=== PATIENT | male | born 1965 | race Caucasian/White ===

== ENCOUNTER 2016-12-19 17:11 | Emergency (ER) | payer MEDICARE ==
[2016-12-19 17:28] VITALS: RESP 18; TEMP 97.9
--- NOTE | 2016-12-19 18:12 | ED ---
Seizure HPI - General Chief Complaint: Seizure Stated Complaint: Seizure Source: patient, EMS Mode of arrival: EMS Limitations: no limitations - History of Present Illness Initial Comments: Patient is a 51-year-old male who presents for evaluation for seizure. Past medical history as below. Patient has a known history of seizure disorder and takes Lamictal 250 mg twice a day 4. Over the last 2 days, the patient stated that he has not taken any of his medications. States that he has been very busy and has stress forgotten. Today while at the [employer] store, he walked out of the store and went into his vehicle. He stated that he became confused and did not know how to operate his vehicle to reverse it to get out of the parking lot. He then started to have what is described as generalized tonic-clonic seizure. He has no recollection of the seizure itself. This lasted for roughly 3 minutes. He then woke up and saw people lying around him outside of his vehicle. EMS was called. They did not give any medications. He states that he was a little sleepy after but needed to urinate was able to get up and urinate. There is evidence of tongue biting on the left side of his tongue. He feels back to baseline currently. He is followed by neurologist out of the [place] system. He currently denies fever, chills, headache, changes in vision , URI symptoms, sugars breath, cough, chest pain, nausea, vomiting, diarrhea, pain or burning with urination. - Related Data Home Medications Medication Instructions Recorded Confirmed lamoTRIgine [LaMICtal] 250 mg PO BID 12/19/16 12/19/16 Allergies Allergy/AdvReac Type Severity Reaction Status Date / Time codeine Allergy Rash/Hives Verified 12/19/16 18:35 adhesive tape AdvReac Itching Verified 12/19/16 18:35 Review of Systems ROS Statement: Those systems with pertinent positive or pertinent negative responses have been documented in the HPI. ROS Other: All systems not noted in ROS Statement are negative. Past Medical History Past Medical History: Seizure Disorder Additional Past Medical History / Comment(s): subdural hematoma in 1982 History of Any Multi-Drug Resistant Organisms: None Reported Past Surgical History: No Surgical Hx Reported Past Psychological History: No Psychological Hx Reported Smoking Status: Never smoker Past Alcohol Use History: None Reported Past Drug Use History: None Reported General Exam Limitations: no limitations General appearance: alert, in no apparent distress, other (Well-appearing) Head exam: Present: atraumatic, normocephalic, normal inspection, other (No evidence of head trauma) Eye exam: Present: normal appearance, PERRL, EOMI. Absent: scleral icterus, conjunctival injection, periorbital swelling ENT exam: Present: normal exam, mucous membranes moist, other (Evidence of tongue biting on the left.) Neck exam: Present: normal inspection. Absent: tenderness, meningismus, lymphadenopathy Respiratory exam: Present: normal lung sounds bilaterally. Absent: respiratory distress, wheezes, rales, rhonchi, stridor Cardiovascular Exam: Present: regular rate, normal rhythm, normal heart sounds. Absent: systolic murmur, diastolic murmur, rubs, gallop, clicks GI/Abdominal exam: Present: soft, normal bowel sounds. Absent: distended, tenderness, guarding, rebound, rigid Extremities exam: Present: normal inspection, full ROM, normal capillary refill. Absent: tenderness, pedal edema, joint swelling, calf tenderness Back exam: Present: normal inspection Neurological exam: Present: alert, oriented X3, CN II-XII intact, other ( Cranial nerves II through XII grossly intact without focal neurological deficits. 5-5 showing of the upper and lower extremities. Alert and oriented 3. 5-5 strength of the upper or lower charities. L4 and S1 reflexes intact. Sensation intact in all 4 charities. No ataxia of the upper or lower charities. ) Psychiatric exam: Present: normal affect, normal mood Skin exam: Present: warm, dry, intact, normal color. Absent: rash Course Vital Signs 12/19/16 17:24 Temperature 97.9 F Pulse Rate 86 Respiratory 18 Rate Blood Pressure 122/83 O2 Sat by Pulse 95 Oximetry Medical Decision Making - Medical Decision Making Patient is a 51 old male who presents for evaluation for seizure roughly 3 minutes. Last seizure was 15 months ago. Noncompliant with his medications at the last 2 days. States that this is a typical seizure for him. He is currently back to baseline. We'll order basic labs with a CT head, EKG. We'll take his dose of Lamictal now. 1756: Reviewed EKG. No ST changes. Normal sinus rhythm at a Rate of 66. DE 188. QRS 92. QTc 44. 1915: Reviewed laboratory studies. All of which were within normal limits. Reviewed CT head which revealed some encephalomalacia in the frontal lobe. I discussed this with the patient states that he has a history of this which is known to him. He had a history of a subdural. He was told by his neurologist that he will have some brain loss in his frontal lobes. He has not had any seizures while in the emergency department. His workup has been unremarkable. Believe his seizures are due to noncompliant with his seizure medications which she admits too. Recommended taking his medications as prescribed. Will call his neurologist on Thursday morning to set up a follow-up appointment. We'll not drive or operate machinery until cleared by neurology. Stress the importance of this. Has a friend at bedside who can take him home and will check up on him periodically. Discussed signs and symptoms on when to return to the emergency department for further evaluation. - Lab Data Result diagrams: 12/19/16 18:15 12/19/16 18:15 Lab Results 12/19/16 12/19/16 12/19/16 Range/Units 18:15 18:15 18:15 WBC 7.4 (3.8-10.6) k/uL RBC 4.91 (4.30-5.90) m/uL Hgb 14.9 (13.0-17.5) gm/dL Hct 44.0 (39.0-53.0) % MCV 89.5 (80.0-100.0) fL MCH 30.3 (25.0-35.0) pg MCHC 33.9 (31.0-37.0) g/dL RDW 12.6 (11.5-15.5) % Plt Count 211 (150-450) k/uL Neutrophils % 74 % Lymphocytes % 15 % Monocytes % 7 % Eosinophils % 2 % Basophils % 1 % Neutrophils # 5.4 (1.3-7.7) k/uL Lymphocytes # 1.1 (1.0-4.8) k/uL Monocytes # 0.5 (0-1.0) k/uL Eosinophils # 0.2 (0-0.7) k/uL Basophils # 0.0 (0-0.2) k/uL Sodium 139 (137-145) mmol/L Potassium 4.0 (3.5-5.1) mmol/L Chloride 104 (98-107) mmol/L Carbon Dioxide 23 (22-30) mmol/L Anion Gap 12 mmol/L BUN 17 (9-20) mg/dL Creatinine 0.93 (0.66-1.25) mg/dL Est GFR (MDRD) Af Amer >60 (>60 ml/min/1.73 sqM) Est GFR (MDRD) Non-Af >60 (>60 ml/min/1.73 sqM) Glucose 100 H (74-99) mg/dL Calcium 9.4 (8.4-10.2) mg/dL Magnesium 2.0 (1.6-2.3) mg/dL Total Bilirubin 0.5 (0.2-1.3) mg/dL AST 20 (17-59) U/L ALT 32 (21-72) U/L Alkaline Phosphatase 103 (38-126) U/L Total Protein 6.6 (6.3-8.2) g/dL Albumin 4.0 (3.5-5.0) g/dL Urine Color Colorless Urine Appearance Clear (Clear) Urine pH 6.5 (5.0-8.0) Ur Specific [place] 1.004 (1.001-1.035) Urine Protein Negative (Negative) Urine Glucose (UA) Negative (Negative) Urine Ketones Negative (Negative) Urine Blood Negative (Negative) Urine Nitrite Negative (Negative) Urine Bilirubin Negative (Negative) Urine Urobilinogen <2.0 (<2.0) mg/dL Ur Leukocyte Esterase Negative (Negative) Disposition Clinical Impression: Breakthrough seizure Disposition: HOME SELF-CARE Condition: Good Instructions: Recurrent Seizures in Adults (ED) Referrals: Nonstaff,Physician [Primary Care Provider] - 1-2 days Darron Rivers MD [STAFF PHYSICIAN] - 1-2 days
--- NOTE | 2016-12-19 18:39 | CT ---
EXAMINATION TYPE: CT brain wo con DATE OF EXAM: 12/19/2016 COMPARISON: NONE HISTORY: Seizure today. History of seizures. CT DLP: 1005.10 mGycm Automated exposure control for dose reduction was used. FINDINGS: There is hypodensity in the huang and white matter of both frontal lobes. There is no mass effect nor midline shift. There is no sign of intracranial hemorrhage. Calvarium is intact. There is mucosal thi ckening in the posterior left maxillary sinus. There is thinning of the corpus callosum. 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 NO ACUTE INTR ACRANIAL ABNORMALITY. LEFT MAXILLARY SINUSITIS.
[2016-12-19 18:52] LABS: Appearance,Urine Clear (Clear); Basophils % (A) 1 %; Bilirubin,Urine Negative (Negative); CH 31.1; CHCM 34.9; Eosinophils # (A) 0.2 k/uL (0-0.7); Eosinophils % (A) 2 %; Glucose,Urine (UA) Negative (Negative); HDW 2.33; HGB 14.9 gm/dL (13.0-17.5); Ketones,Urine Negative (Negative); Leukocyte Esterase,Urine Negative (Negative); Luc # (Auto) 0.18; Luc % (Auto) 3; Lymphocytes # (A) 1.1 k/uL (1.0-4.8); Lymphocytes % (A) 15 %; MCH 30.3 pg (25.0-35.0); MCHC 33.9 g/dL (31.0-37.0); MCV 89.5 fL (80.0-100.0); Mean Platelet Volume 8.4; Monocytes # (A) 0.5 k/uL (0-1.0); Monocytes % (A) 7 %; Neutrophils # (A) 5.4 k/uL (1.3-7.7); Neutrophils % (A) 74 %; Nitrite,Urine Negative (Negative); PH, Urine 6.5 (5.0-8.0); Protein,Urine Negative (Negative); RBC 4.91 m/uL (4.30-5.90); RDW 12.6 % (11.5-15.5); Specific Gravity,Urine 1.004 (1.001-1.035); UA Billing (MACRO vs. MICRO) CHEM; Urobilinogen,Urine <2.0 mg/dL (<2.0); WBC 7.4 k/uL (3.8-10.6); WBC (Perox) 6.68
[2016-12-19 18:58] LABS: ALT 32 U/L (21-72); AST 20 U/L (17-59); Alkaline Phosphatase 103 U/L (38-126); Anion Gap 12 mmol/L; Blood Urea Nitrogen 17 mg/dL (9-20); Calcium 9.4 mg/dL (8.4-10.2); Carbon Dioxide 23 mmol/L (22-30); Chloride 104 mmol/L (98-107); Glucose 100 mg/dL (74-99); Non-African American GFR(MDRD) >60 (>60 ml/min/1.73 sqM); Sodium 139 mmol/L (137-145); Total Bilirubin 0.5 mg/dL (0.2-1.3); Total Protein 6.6 g/dL (6.3-8.2)
[2016-12-19 19:30] VITALS: BP 131/85; PULSE 59
== END 2016-12-19 19:52 | disposition home or self-care (01) ==
LOC: EC 17:11
DX: G40.909 Epilepsy, unspecified, not intractable, without status epilepticus (principal); G93.89 Other specified disorders of brain; Z79.899 Other long term (current) drug therapy; Z88.5 Allergy status to narcotic agent; Z91.048 Other nonmedicinal substance allergy status
CPT/HCPCS: 36415; 70450; 80053; 81003; 83735; 85025; 93005; 99284